=== PATIENT | female | born 1990 | race American Indian/Alaskan Native ===

== ENCOUNTER 2020-10-02 21:25 | Emergency (ER) | payer MEDICAID ==
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
[2020-10-03 02:27] VITALS: BP 119/78
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
== END 2020-10-03 03:09 | disposition home or self-care (01) ==
LOC: ED 21:25
DX: S05.12XA Contusion of eyeball and orbital tissues, left eye, initial encounter (principal); H57.12 Ocular pain, left eye; I10 Essential (primary) hypertension; Z79.1 Long term (current) use of non-steroidal anti-inflammatories (NSAID); Z79.2 Long term (current) use of antibiotics; Y04.2XXA Assault by strike against or bumped into by another person, initial encounter; Y93.89 Activity, other specified; Y92.89 Other specified places as the place of occurrence of the external cause; Y99.8 Other external cause status
CPT/HCPCS: 70450; 70486; 72125